=== PATIENT | male | born 1950 | race Caucasian/White ===

== ENCOUNTER 2022-03-11 06:21 | Day surgery (SDC) | payer MEDICARE, BC, SELFPAY ==
[2022-03-11 06:41] VITALS: BP 132/69; PULSE 61; RESP 16; TEMP 36.6; O2SAT 99
[2022-03-11 06:43] VITALS: BMI 25.7
[2022-03-11] MEDS: BUPIVACAINE 0.5% 30 ML INJECTION (06:50)
[2022-03-11 07:23] VITALS: BP 146/76; PULSE 68; RESP 16; O2SAT 99
--- NOTE | 2022-03-11 07:25 | SUR.PREOP ---
SAME DAY SURGERY LOCAL INJECTION SITE VERIFICATION WAS PERFORMED BY SURGEON/PA AND PATIENT PRIOR TO LOCAL ANESTHETIC BEING INJECTED TO OPERATIVE SITE.
[2022-03-11 07:27] VITALS: BP 146/77; PULSE 73; RESP 16; O2SAT 99
[2022-03-11 07:30] VITALS: BP 147/80; PULSE 70; RESP 15; O2SAT 99
--- NOTE | 2022-03-11 07:32 | PM.ORPRC ---
Procedure Note Date of procedure: 03/11/22 Procedure: PREOPERATIVE DIAGNOSIS: 1. Right index finger flexor tenosynovitis - trigger finger POSTOPERATIVE DIAGNOSIS: 1. Right index finger flexor tenosynovitis - trigger finger PROCEDURE: 1. Right index finger flexor tendon sheath open release (A1 bola) SURGEON: Willy Lyons MD. GROUNDSKEEPING YARDMAN: TIKA Curry ANESTHESIA: Local anesthetic 4ml via 50:50 mixture of 0.5% Lidocaine with epi and 0.5% marcaine plain EBL: 2mL IMPLANTS: None TOURNIQUET: None COMPLICATIONS: None evident INDICATIONS: The patient is a pleasant 71-year-old male who has experienced right index finger catching/triggering for number of months. It has progressively gotten worse. Given the failure of nonoperative management, and how this affects daily life, surgery was recommended. DESCRIPTION OF PROCEDURE: Following a thorough discussion of risks, benefits, and alternatives consent was obtained and the operative digit(s) was marked. The patient was brought to the operating room and placed supine on the operating table. Local anesthesia induction was undertaken in preop holding. No antibiotics were administered as this was planned to be a local case only. Proper time-out was performed identifying proper patient, site, and procedure. The operative extremity was prepped and draped in the appropriate sterile fashion using ChloraPrep. A incision was made on the palmar surface of the hand overlying the MCP joint region of the appropriate digit(s) respecting the palmar creases being cautious not to cross these perpendicularly. Sharp incision through the skin, and blunt dissection through subcutaneous tissue allowing protection of crossing neurologic structures. The A1 bola was visualized directly. It was incised sharply with a 15 blade. It was released completely from its distal to proximal extent under direct visualization. The tendon was inspected and found to be mildly striated consistent with some friction. Otherwise, it was intact. The tendon was removed out of the wound, and further inspected. The patient was asked to manually flex and extend the digits and showed no further catching. The catching, which was visualized initially, was no longer evident with reproduction of a manual fist and relaxation. Closure was performed with 4-O nylon in interrupted fashion. Soft dressings were applied, and the patient was transferred to the recovery room in stable condition. PLAN: 1. Encourage elevation of the operative extremity. 2. Range of motion of the fingers and hand/wrist as tolerated. 3. Ibuprofen/acetaminophen and/or Percocet as needed for pain control. 4. Follow up with PA visit in 12-16 days for wound check and suture removal.
[2022-03-11] MEDS: NEOMYCIN/BACITRACIN/POLYMYXIN B 1 APPLIC TOPICAL (07:33)
[2022-03-11 07:34] VITALS: BP 147/80; PULSE 68; RESP 16; O2SAT 99
[2022-03-11 07:44] VITALS: BP 137/85; PULSE 60; RESP 16; TEMP 36.5; O2SAT 98
== END 2022-03-11 07:54 | disposition home or self-care (01) ==
PROVIDERS: PCP Physician Assistant Medical; Visit Provider Orthopaedic Surgery Sports Medicine
PROC: (CPT 26055; principal; 2022-03-11 07:30)
DX: M65.321 Trigger finger, right index finger (principal); M65.841 Other synovitis and tenosynovitis, right hand
CPT/HCPCS: 26055; J3490

== ENCOUNTER 2022-04-02 09:15 | Outpatient (CLI) | payer MEDICARE, BC, SELFPAY ==
[2022-04-02 13:55] LABS: Chloride* 101 mmol/L (96-114)
[2022-04-02 13:56] LABS: Albumin* 4.5 g/dL (3.3-5.0); Potassium* 4.5 mmol/L (3.6-5.1); Sodium* 140 mmol/L (135-149)
[2022-04-02 13:58] LABS: Carbon Dioxide* 31 mmol/L (20-32); Cholesterol* 194 mg/dL (90-199); Creatinine* 1.2 mg/dL (0.5-1.5); Estimated Glomerular Filt Rate 65 ml/min
[2022-04-02 13:59] LABS: Alanine Aminotransferase* 31 U/L (4-50); Alkaline Phosphatase* 60 U/L (40-150); Aspartate Amino Transferase* 29 U/L (12-35); Bilirubin Total* 1.9 mg/dL (0.1-1.5); Blood Urea Nitrogen* 21 mg/dL (7-30); Calcium* 9.3 mg/dL (8.4-10.6); Glucose* 92 mg/dL (60-115); Triglycerides* 116 mg/dL (40-149)
[2022-04-02 14:00] LABS: HDL Cholesterol* 60 mg/dL (>=40); LDL Cholesterol Calculated 111 mg/dL (<100)
[2022-04-02 16:16] LABS: PSA Screen* 3.29 ng/mL (0.10-4.00)
[2022-04-02 21:23] LABS: Free T4 Free Thyroxine* 0.76 ng/dL (0.70-1.85)
== END 2022-04-02 09:16 | disposition home or self-care (01) ==
PROVIDERS: PCP Physician Assistant Medical; Visit Provider Physician Assistant Medical
DX: E03.9 Hypothyroidism, unspecified (principal); I10 Essential (primary) hypertension; Z12.5 Encounter for screening for malignant neoplasm of prostate; Z13.6 Encounter for screening for cardiovascular disorders
CPT/HCPCS: 80053; 80061; 84153; 84439; 84443

== ENCOUNTER 2022-06-04 08:13 | Outpatient (CLI) | payer MEDICARE, BC, SELFPAY | END 2022-06-04 08:14 | disposition home or self-care (01) | LOC: FRMREF 08:24 | PROVIDERS: PCP Physician Assistant Medical; Visit Provider Physician Assistant Medical | DX: E03.9 Hypothyroidism, unspecified (principal); I10 Essential (primary) hypertension | CPT/HCPCS: 84443 ==

== ENCOUNTER 2022-11-17 09:47 | Outpatient (CLI) | payer MEDICARE, BC, SELFPAY | END 2022-11-17 09:48 | disposition home or self-care (01) | PROVIDERS: PCP Physician Assistant Medical; Visit Provider Physician Assistant Medical | DX: E03.9 Hypothyroidism, unspecified (principal); I10 Essential (primary) hypertension | CPT/HCPCS: 84443 ==

== ENCOUNTER 2023-04-09 07:57 | Outpatient (CLI) | payer MEDICARE, BC, SELFPAY | END 2023-04-09 07:58 | disposition home or self-care (01) | LOC: NFLDREF 04-16 07:38 | PROVIDERS: PCP Physician Assistant Medical; Referring Provider Physician Assistant Medical; Visit Provider Physician Assistant Medical | DX: E03.9 Hypothyroidism, unspecified (principal); I10 Essential (primary) hypertension; Z12.5 Encounter for screening for malignant neoplasm of prostate; Z13.6 Encounter for screening for cardiovascular disorders | CPT/HCPCS: 80053; 80061; 84153; 84443 ==

== ENCOUNTER 2023-09-13 10:51 | Day surgery (SDC) | payer MEDICARE, BC, SELFPAY ==
[2023-09-13] VITALS (7 sets, daily range): BP systolic 148–167; BP diastolic 72–95; PULSE 53–62; RESP 16–18; TEMP 36.6–36.7; O2SAT 98–100
[2023-09-13] MEDS: BUPIVACAINE 0.5% 30 ML INJECTION (12:00)
[2023-09-13] MEDS: NEOMYCIN/BACITRACIN/POLYMYXIN B 1 APPLIC TOPICAL (12:55)
--- NOTE | 2023-09-13 13:03 | P.ORPRC_ITS ---
Procedure Note Date of procedure: 09/13/23 Procedure: PREOPERATIVE DIAGNOSIS: 1. Left ring finger flexor tenosynovitis - trigger finger POSTOPERATIVE DIAGNOSIS: 1. Left ring finger flexor tenosynovitis - trigger finger PROCEDURE: 1. Left ring finger flexor tendon sheath open release (A1 bola) SURGEON: Willy Lyons MD. SUPER[employer]OR [employer]: Daniel Goncalves PA-C ANESTHESIA: Local anesthetic 4ml via 50:50 mixture of 2 % Lidocaine with epi and 0.5% marcaine plain EBL: 2ml IMPLANTS: None TOURNIQUET: None COMPLICATIONS: None evident INDICATIONS: The patient is a pleasant 73-year-old male who has experienced left ring finger catching/triggering for number of months. It has progressively gotten worse. Given the failure of nonoperative management, and how this affects daily life, surgery was recommended. DESCRIPTION OF PROCEDURE: Following a thorough discussion of risks, benefits, and alternatives consent was obtained and the operative digit(s) was marked. The patient was brought to the operating room and placed supine on the operating table. Local anesthesia induction was undertaken in preop holding. No antibiotics were administered as this was planned to be a local case only. Proper time-out was performed identifying proper patient, site, and procedure. The operative extremity was prepped and draped in the appropriate sterile fashion using ChloraPrep. An incision was made on the palmar surface of the hand overlying the MCP joint region of the appropriate digit(s) respecting the palmar creases being cautious not to cross these perpendicularly. Sharp incision through the skin, and blunt dissection through subcutaneous tissue allowing protection of crossing neurologic structures. The A1 bola was visualized directly. It was incised sharply with a 15 blade. It was released completely from its distal to proximal extent under direct visualization. The tendon was inspected and found to be mildly striated consistent with some friction. Otherwise, it was intact. The tendon was removed out of the wound, and further inspected. The patient was asked to manually flex and extend the digits and showed no further catching. The catching which was visualized after tourniquet inflation, was no longer evident with reproduction of a manual fist and relaxation. Closure was performed with 4-O nylon in interrupted fashion. Soft dressings were applied, and the patient was transferred to the recovery room in stable condition. PLAN: 1. Encourage elevation of the operative extremity. 2. Range of motion and icing of the fingers and hand/wrist as tolerated/needed. 3. Ibuprofen/acetaminophen and/or oxycodone as needed for pain control. 4. Follow up with PA visit in 12-16 days for wound check and suture removal.
== END 2023-09-13 13:15 | disposition home or self-care (01) ==
PROVIDERS: PCP Physician Assistant Medical; Visit Provider Orthopaedic Surgery Sports Medicine
PROC: (CPT 26055; principal; 2023-09-13 12:00)
DX: M65.342 Trigger finger, left ring finger (principal); M65.842 Other synovitis and tenosynovitis, left hand
CPT/HCPCS: 26055; J0665

== ENCOUNTER 2023-12-13 18:32 | Emergency (ER) | payer MEDICARE, BC, SELFPAY ==
[2023-12-13 18:40] VITALS: BP 145/77; PULSE 78; RESP 16; TEMP 36.9; O2SAT 98; BMI 26.4
--- NOTE | 2023-12-13 18:50 | ED_ITS ---
HPI - General Adult General Chief complaint: Abdominal Pain Stated complaint: abdominal pain Time Seen by Provider: 12/13/23 18:36 History of Present Illness HPI narrative: Double checking for labs and CT scan to abdomen- sent over from clinic Pain started in LLQ yesterday afternoon 73-year-old man presenting to the emergency department with concern of abdominal pain. Began to be uncomfortable in the left lower abdomen about 28 hours ago. Was seen in clinic this afternoon and directed here with concern of abscess. Reading clinic notes it appears that he was guarding to exam. Has not had a fever. Is not nauseated. Over the last month or so has begun treatment with pentoxifylline which seems to be contributing to poor appetite. He denies constipation. No diarrhea. No dysuria. No history of UTI. Does have a history of diverticulitis I believe was in 2007. Uncomplicated. Treated with oral antibiotics. Had subsequent colonoscopy in 2018 which they report was absent any other disease. Pain is uncomfortable with movement but in particular palpation as he describes. Was mowing the lawn without notable difficulty yesterday. Sounds to be rather active. Related Data Home Medications ?Medication ?Instructions ?Recorded ?Confirmed B-complex with vitamin C 1 cap PO QDAY 02/20/22 12/13/23 arginine (L-arginine) 500 mg mg PO 02/20/22 12/13/23 capsule aspirin 81 mg chewable tablet 1 tab PO DAILY 02/20/22 12/13/23 omega 3-zzd-rjl-fish oil 300 1 cap PO QDAY 02/20/22 12/13/23 mg-1,000 mg capsule (Fish Oil) multivitamin (Multiple Vitamins 1 tab PO QDAY 09/09/23 12/13/23 tablet) pentoxifylline 400 mg 400 mg PO BID peyronne's 10/07/23 12/13/23 tablet,extended release Previous Rx's ?Medication ?Instructions ?Recorded chorionic gonadotropin, human 0.13 unit IM 2XW #1 ea 01/28/23 10,000 unit IM powder for solution levothyroxine 50 mcg tablet 50 mcg PO QDAY #90 tabs 04/09/23 needle (disp) 22 G 22 gauge x 1 #13 ea 06/04/23 syringe with needle 3 mL 21 gauge #13 ea 06/04/23 x 1 (BD Luer-Tatiana Syringe) lisinopril 30 mg tablet 30 mg PO DAILY #90 tabs 09/02/23 nebivolol 5 mg tablet 5 mg PO DAILY #90 tabs 09/02/23 insulin syringe-needle U-100 0.3 #10 ea 09/30/23 mL 31 gauge x 5/16 (BD Insulin Syringe Ultra-Fine) safety needles 25 gauge x 1 (BD #100 ea 10/11/23 Eclipse) testosterone cypionate 200 mg/mL 80 mg (0.4 mL) IM .One Day Per 10/12/23 intramuscular oil Week #10 mL clobetasol 0.05 % shampoo 1 applic topical QDAY PRN rash 1 12/16/23 week #118 mL Allergies Allergy/AdvReac Type Severity Reaction Status Date / Time No Known Drug Allergies Allergy Verified 12/13/23 18:45 Review of Systems Status of ROS: Reports: 6 or more systems reviewed and unremarkable except as noted in History and below PFSH PFS Medical History Seborrheic dermatitis ?L21.9 - Seborrheic dermatitis, unspecified (ICD-10) Trigger finger, right index finger ?M65.321 - Trigger finger, right index finger (ICD-10) History of renal calculi ?Z87.442 - Personal history of urinary calculi (ICD-10) Surgical History Status post trigger finger release ?Z98.890 - Other specified postprocedural states (ICD-10) History of sinus surgery ?Z98.890 - Other specified postprocedural states (ICD-10) History of cataract removal with insertion of prosthetic lens ?Z98.49 - Cataract extraction status, unspecified eye (ICD-10) ?Z96.1 - Presence of intraocular lens (ICD-10) Family History Father Diabetes Mother Myelodysplasia (myelodysplastic syndrome) Social History Narrative: Health care directive on file completed 02/03/21 What is your current living situation?: I presently have a place to live Problems where you live: no known problems In the past 12 months, utilities in danger of being shut off: no In past 12 months, lack of transportation kept you from medical appts, meetings, work, or getting things needed for daily living: no In the past 12 mos, have been you worried that your food would run out before you had money to buy more?: never true In the past 12 mos, the food you bought just didn't last and you didn't have money to buy more?: never true Smoking Status: Never smoker How often do you have a drink containing alcohol: 2-4 times a month AUDIT-C Alcohol total score: 2 Non-prescribed substance use: denies use How often does anyone, including family, friends and others, physically hurt you : never How often does anyone, including family, friends and others, insult or talk down to you: never How often does anyone, including family, friends and others, threaten you with harm: never How often does anyone, including family, friends and others, scream or curse at you: never Little interest or pleasure in doing things: not at all Feeling down, depressed, or hopeless: not at all Exam Narrative: Exam Narrative: Pleasant. NAD. Transitions without difficulty. Face is wallace. Skin is warm and dry otherwise. Well-perfused peripherally. Abdomen with present, normal bowel sounds. Little protuberant. Nontender until the left lower abdomen, left lower quadrant where he is guarding. Heart in regular rate and rhythm without murmur or gallop. Lungs appear to be clear. Const: Vital Signs, click to edit/add: Vital Signs - 24 hr 12/13/23 18:40 Temperature 98.4 F Pulse Rate [Pulse Oximeter] 78 Respiratory Rate 16 Blood Pressure [Ri ght Upper Arm] 145/77 H Pulse Oximetry 98 Oxygen Delivery Me thod Room Air Documenting provider has reviewed patient's vital signs: yes Course Vital Signs Vital signs: Initial Vital Signs Temperature 98.4 F 12/13/23 18:40 Temperature Source Temporal Artery Scan 12/13/23 18:40 Pulse Rate 78 12/13/23 18:40 Respiratory Rate 16 12/13/23 18:40 Blood Pressure 145/77 H 12/13/23 18:40 Blood Pressure Mean 99 12/13/23 18:40 Blood Pressure Position Sitting 12/13/23 18:40 Pulse Oximetry 98 12/13/23 18:40 Oxygen Delivery Method Room Air 12/13/23 18:40 Vital Signs Temperature 98.4 F 12/13/23 18:40 Pulse Rate 78 12/13/23 18:40 Respiratory Rate 16 12/13/23 18:40 Blood Pressure 145/77 H 12/13/23 18:40 Pulse Oximetry 98 12/13/23 18:40 Oxygen Delivery Method Room Air 12/13/23 18:40 Temperature 98.4 F 12/13/23 18:40 Pulse Rate 78 12/13/23 18:40 Respiratory Rate 18 12/13/23 21:00 Blood Pressure 145/77 H 12/13/23 18:40 Pulse Oximetry 98 12/13/23 18:40 Oxygen Delivery Method Room Air 12/13/23 18:40 Medications Administered Medications: Discontinued Medications Generic Name Dose Route Start Last Admin Trade Name Josephq PRN Reason Stop Dose Admin Hyoscyamine 0.25 mg 12/13/23 20:04 12/13/23 20:20 Hyoscyamine Sulfate 0.125 Mg Tab SUBLINGUAL 12/13/23 20:05 0.25 mg ONCE ONE Administration Ketorolac Tromethamine 10 mg 12/13/23 20:04 12/13/23 20:20 Ketorolac 10 Mg Tablet PO 12/13/23 20:05 10 mg ONCE ONE Administration Medical Decision Making MDM Narrative Medical decision making narrative: Differential would include ureteral stone and colic, constipation or diarrhea though he denies these. I think considering history and location diverticulitis is most likely diagnosis. I would doubt formation of abscess at this point as brief duration of symptoms. He has guarding but otherwise abdomen is soft. No fever. I do not think it is unreasonable to treat with oral antibiotics and discharge but will check white count for baseline. Flat and upright abdominal x-ray looking for any evidence of perforation I think this is less likely as well. Pending unexpected findings in this brief workup could secondarily place IV and more extensive imaging. Labs notable for mildly elevated CRP. Urine unremarkable. Abdominal x-ray reviewed by me looks to have normal bowel gas pattern. There is a density, calcific in the left mid abdomen. This does not seem to correlate precisely with his area of pain but I suppose this could be a stone radiating pain through the ureter Given ODT Zofran and hyoscyamine dissolvable. Discussed further evaluation. CT abdomen pelvis without IV was requested. Reviewed by me does appear to have inflammatory changes which I think would be consistent with diverticulitis in the left lower abdomen and consistent with area of pain. Radiology over-read of CT abdomen pelvis as below Left lower quadrant abdominal pain COMPARISON: Same-day KUB TECHNIQUE: CT of the abdomen and pelvis without intravenous contrast. FINDINGS: Please note that absence of intravenous contrast limits evaluation of soft tissue and vascular structures. Lung bases: No pleural effusion. Liver: Smooth hepatic contour. Gallbladder and biliary tree: Unremarkable noncontrast CT appearance. Spleen: No splenomegaly. Pancreas: Unremarkable noncontrast CT appearance. Adrenal glands: Normal. Kidneys and ureters: No hydroureteronephrosis. 1 centimeter nonobstructing left lower renal pole calculus. Bladder: Unremarkable noncontrast CT appearance. Visualized reproductive organs: Unremarkable noncontrast CT appearance. Gastrointestinal tract: There is severe colonic diverticulosis. There is prominent fat stranding associated with the sigmoid colon and prominent wall thickening. Peritoneal cavity: No free fluid or free air. Lymph nodes: No enlarged abdominal or pelvic lymph nodes by CT size criteria. Vessels: No abdominal aortic aneurysm. Mild aortic calcification. Abdominal and pelvic wall: Normal. Bones: There are osseous degenerative changes. IMPRESSION: 1. Acute uncomplicated sigmoid diverticulitis 2. Nonobstructing 1 centimeter left renal calculus. Overall improved/well during time in the emergency department. Did consider further IV treatment though with normal labs and controlled symptoms preference is for outpatient management. See patient discharge plan for further discussion Medical Records Medical records reviewed: Yes I reviewed the patient's medical records Lab Data Lab results reviewed: Yes I reviewed the patient's lab results Labs: Lab Results 12/13/23 12/13/23 Range/Units 19:20 20:06 WBC 8.53 (4.50-11.00) K/uL RBC 4.41 (4.30-5.90) m/uL Hgb 14.1 (13.5-17.5) gm/dL Hct 40.6 (37.0-53.0) % MCV 92 (80-100) fL MCH 32 (26-34) pg MCHC 35 (32-36) gm/dL RDW Coeff of [place] 12.1 (11.5-15.5) % Plt Count 150 (140-440) K/uL Neut % (Auto) 80.2 H (42.0-72.0) % Lymph % (Auto) 9.1 L (20-44) % [place] % (Auto) 8.3 (0.0-11.0) % Eos % (Auto) 2.0 (0.0-7.0) % Baso % (Auto) 0.2 (0.0-3.0) % Neut # (Auto) 6.80 (1.7-7.0) K/uL Lymph # (Auto) 0.80 L (0.90-2.90) K/uL [place] # (Auto) 0.70 (0.00-0.90) K/UL Eos # (Auto) 0.17 (0.00-0.50) K/uL Baso # (Auto) 0.02 (0.00-0.30) K/uL Abs Immat Gran (auto) 0.02 (0.00-0.30) K/uL Imm/Tot Granulo (auto) 0.2 % C-Reactive Protein 1.7 H (0.5-1.0) mg/dL Urine Color Yellow (Yellow) Urine Appearance Clear (Clear) Urine pH 6.0 (5.0-8.5) Ur Specific [place] 1.025 (1.000-1.030) Urine Protein Negative (Negative) Urine Glucose (UA) Negative (Negative) Urine Ketones Negative (Negative) Urine Blood Negative (Negative) Urine Nitrite Negative (Negative) Urine Bilirubin Negative (Negative) Urine Urobilinogen 0.2 (0.2-1.0) Ur Leukocyte Esterase Negative (Negative) Urine RBC 0-2 (0-2) Urine WBC 0-2 (0-5) Ur Squamous Epith Cells Few (None-Few) Urine Bacteria None (None) Discharge Plan Discharge Clinical Impression: Diverticulitis, Nephrolithiasis Patient Disposition: Home, Self-Care Condition: Stable Instructions: Diverticulitis (ED), Kidney Stones (ED) Additional Instructions: Yes. In general do stay well-hydrated. Be seen for marked increase in persistent pain, associated fever, repeated vomiting. Can take ibuprofen or acetaminophen for pain at this point. They can be c ombined. Temporarily up to 800 mg of ibuprofen or up to 1000 mg of acetaminophen per dose. Ciprofloxacin and metronidazole from [facility]. Prescriptions: No Action aspirin 81 mg tablet,chewable 1 tab PO DAILY omega 2-bul-jdk-fish oil [Fish Oil] 300-1,000 mg capsule 1 cap PO QDAY B-complex with vitamin C Capsule 1 cap PO QDAY arginine (L-arginine) 500 mg capsule PO multivitamin [Multiple Vitamins] Tablet 1 tab PO QDAY chorionic gonadotropin, human 10,000 unit recon soln 0.13 unit IM 2XW Qty: 1 3RF Rx Instructions: Mix chorionic gonadotropin with 10ml of diluent and inject 0.13 ml 2 x per week levothyroxine 50 mcg tablet 50 mcg PO QDAY Qty: 90 3RF (DME) needle (disp) 22 G 22 gauge x 1 needle See Rx Instructions .ROUTE .COMPLEX Qty: 13 3RF Dose Instruction: USE WEEKLY WITH TESTOSTERONE Rx Instructions: USE WEEKLY WITH TESTOSTERONE (DME) BD Luer-Tatiana Syringe 3 mL 21 gauge x 1 syringe See Rx Instructions .ROUTE .COMPLEX Qty: 13 3RF Dose Instruction: USE WEEKLY WITH TESTOSTERONE Rx Instructions: USE WEEKLY WITH TESTOSTERONE lisinopril 30 mg tablet 30 mg PO DAILY Qty: 90 1RF nebivolol 5 mg tablet 5 mg PO DAILY Qty: 90 1RF (DME) insulin syringe-needle U-100 [BD Insulin Syringe Ultra-Fine] 0.3 mL 31 gauge x 5/16 syringe See Rx Instructions .Route Qty: 10 1RF Rx Instructions: Use with chorionic gonadotropin injection pentoxifylline 400 mg tablet extended release 400 mg PO BID Rx Instructions: must administer with a meal/food (DME) BD Eclipse 25 gauge x 1 needle See Rx Instructions .Route Qty: 100 3RF Rx Instructions: Use Weekly with testosterone testosterone cypionate 200 mg/mL oil 80 mg IM .One Day Per Week Qty: 10 3RF clobetasol 0.05 % shampoo 1 applic topical QDAY PRN (Reason: rash) 7 Days Qty: 118 1RF Follow Up/Referrals: Wanda Lua PA-C [Primary Care Provider] - Stand Alone Forms: [facility] Info Instructions
--- NOTE | 2023-12-13 19:07 | CRLHL7_ITS ---
For Patients: As a result of the Century Cures Act, medical imaging exams and procedure reports are released immediately into your electronic medical record. You may view this report before your referring provider. If you have questions, please contact your health care provider. INDICATION: Abdominal pain, left lower quadrant pain TECHNIQUE: Abdomen Pelvis radiograph 2 views COMPARISON: None FINDINGS: Bowel: The bowel gas pattern is normal without evidence of bowel obstruction. Soft tissue: No evidence of pneumoperitoneum present. There is a 10 mm calcific density in the left flank which may represent a left renal stone. Bone: Unremarkable for age. IMPRESSION: 1. There is a 10 mm calcific density in the left flank which may represent a left renal stone. Assessment with CT may be helpful. Dictated by Dru Valdes MD @ 12/13/2023 7:45:38 PM Dictated by: Dru Valdes MD @ 12/13/2023 19:45:41 (Electronically Signed)
[2023-12-13 19:26] LABS: Basophils Absolute Auto 0.02 K/uL (0.00-0.30); Basophils Percent Auto 0.2 % (0.0-3.0); Eosinophils Absolute Auto 0.17 K/uL (0.00-0.50); Hematocrit 40.6 % (37.0-53.0); Hemoglobin* 14.1 gm/dL (13.5-17.5); Immature Granulocytes Abs Auto 0.02 K/uL (0.00-0.30); Immature Granulocytes Pct Auto 0.2 %; Lymphocytes Percent Auto 9.1 % (20-44); Mean Corpuscular HGB Conc 35 gm/dL (32-36); Mean Corpuscular Hemoglobin 32 pg (26-34); Mean Corpuscular Volume 92 fL (80-100); Monocytes Percent Auto 8.3 % (0.0-11.0); Neutrophils Percent Auto 80.2 % (42.0-72.0); Platelet Count* 150 K/uL (140-440); RDW Coefficient of Variation % 12.1 % (11.5-15.5); Red Blood Count 4.41 m/uL (4.30-5.90); White Blood Count* 8.53 K/uL (4.50-11.00)
[2023-12-13 19:28] LABS: Slide Review Reflex No
[2023-12-13 19:49] LABS: C Reactive Protein* 1.7 mg/dL (0.5-1.0)
--- NOTE | 2023-12-13 20:00 | CRLHL7_ITS ---
For Patients: As a result of the Century Cures Act, medical imaging exams and procedure reports are released immediately into your electronic medical record. You may view this report before your referring provider. If you have questions, please contact your health care provider. INDICATION: Left lower quadrant abdominal pain COMPARISON: Same-day KUB TECHNIQUE: CT of the abdomen and pelvis without intravenous contrast. FINDINGS: Please note that absence of intravenous contrast limits evaluation of soft tissue and vascular structures. Lung bases: No pleural effusion. Liver: Smooth hepatic contour. Gallbladder and biliary tree: Unremarkable noncontrast CT appearance. Spleen: No splenomegaly. Pancreas: Unremarkable noncontrast CT appearance. Adrenal glands: Normal. Kidneys and ureters: No hydroureteronephrosis. 1 centimeter nonobstructing left lower renal pole calculus. Bladder: Unremarkable noncontrast CT appearance. Visualized reproductive organs: Unremarkable noncontrast CT appearance. Gastrointestinal tract: There is severe colonic diverticulosis. There is prominent fat stranding associated with the sigmoid colon and prominent wall thickening. Peritoneal cavity: No free fluid or free air. Lymph nodes: No enlarged abdominal or pelvic lymph nodes by CT size criteria. Vessels: No abdominal aortic aneurysm. Mild aortic calcification. Abdominal and pelvic wall: Normal. Bones: There are osseous degenerative changes. IMPRESSION: 1. Acute uncomplicated sigmoid diverticulitis 2. Nonobstructing 1 centimeter left renal calculus. Please note that all CT scans at this facility use dose modulation, iterative reconstruction, and/or weight-based dosing when appropriate to reduce radiation dose to as low as reasonably achievable. Dictated by Keaton Kan MD @ 12/13/2023 8:50:02 PM (Electronically Signed)
[2023-12-13 20:18] LABS: Appearance Urine Clear (Clear); Bilirubin Urine Negative (Negative); Blood Urine Negative (Negative); Color Urine Yellow (Yellow); Glucose Urine Negative (Negative); Ketones Urine Negative (Negative); Leukocyte Esterase Urine Negative (Negative); Nitrite Urine Negative (Negative); Protein Urine Negative (Negative); Specific Gravity Urine 1.025 (1.000-1.030); Urobilinogen Urine 0.2 (0.2-1.0)
[2023-12-13 20:20] LABS: RBC Urine 0-2 (0-2); Squamous Epithelial Cell Urine Few (None-Few); WBC Urine 0-2 (0-5)
[2023-12-13] MEDS: HYOSCYAMINE SULFATE 0.125 MG TAB 0.25 MG SUBLINGUAL (20:20)
[2023-12-13] MEDS: KETOROLAC 10 MG TABLET PO (20:20)
[2023-12-13 21:00] VITALS: RESP 18
--- NOTE | 2023-12-13 21:18 | ED.NURSE ---
Patient discharged to home.
== END 2023-12-13 21:18 | disposition home or self-care (01) ==
PROVIDERS: Emergency Provider Family Medicine; PCP Physician Assistant Medical
DX: K57.32 Diverticulitis of large intestine without perforation or abscess without bleeding (principal); N20.0 Calculus of kidney
CPT/HCPCS: 36415; 74019; 74176; 81001; 85025; 86140; 99284; A9270

== ENCOUNTER 2024-03-30 08:37 | Outpatient (CLI) | payer MEDICARE, BC, SELFPAY ==
--- OUTSIDE RECORDS SUMMARY | 2024-04-03 20:22 | XMS_ITS | Data Portability ---
Author Organization [place] [facility] [place] [facility], [facility] Address [address] [facility] [address] [place] [address] Care Team Providers Care Landing Support Specialist Name Role Phone WANDA LUA Primary Care Provider [phone] Assessment Encounter Date Assessment Date Assessment LastModified by Organization Details LastModified Time 10/07/2023 10/07/2023 73 yoM with Peyronie's disease and penile pain Not available 10/07/2023 09:40:11 01/13/2024 01/13/2024 73 yoM with Peyronie's disease and penile pain [email or web address] Not available 01/10/2024 12:50:36 Plan of Treatment Reminders Order Date Submit Date Provider Last Modified By Organization Details Last Modified Time Details Appointments ESTABLISH ED 10 2023 10:30A M Chico Angel MD Not available Not available Not available Lab None recorded. Referral None recorded. Procedures None recorded. Surgeries None recorded. Imaging None recorded. Medication Orders pentoxify lline ER 400 mg tablet,ex tended release 2023 024 [facility] [address], [address] [place], [address], 10/07/2023 11:53:39 Patient TargetsNo targets recorded. Patient Instructions Encounter Date Encounter Id Patient Instructions Last Modified By Organization Details Last Modified Time 10/07/2023 [id number] He would like to proceed with pentoxifylline with manual traction therapy. What I would like you to do is 2-3 times per day spend a total of 2 minutes performing stretching exercises. First you will stretch your penis straight until is is uncomfortably tight. Hold this for 1 minute. The use your other hand to create a fulcrum and bend the penis the opposite way from the direction that it bends with erections. Again hold this for 1 minute. You should perform these stretching exercises in the flaccid state. Not available 10/07/2023 13:17:29 Reason for Referral None Reported. Procedures Surgical History Date Name Laterality Status Provider Name and Address Organization Details Recorded Time 01/13/20 24 COMPLEX VISIT completed Chico Angel MD [address] [facility] [address], [place], [address], [facility] 01/13/2024 09:32:20 05/24/19 18 Colonoscopy completed Kiarra Matos [facility] 10/07/2023 11:39:31 procedure on nose completed Kiarra Matos [facility] 10/07/2023 11:39:12 procedure on finger completed Kiarra Matos [facility] 10/07/2023 11:39:18 Imaging Results None recorded. Procedure Notes None recorded. Medical Equipment None Reported. Allergies No known drug allergies Medications Name Sig Start Date Stop Date Status Note LastModified by Organization Details LastModified Time ketoconazol e 2 % shampoo 01/12 completed Not Available Not Available Not Available pentoxifyll ine ER 400 mg tablet,exte nded release Take 1 tablet twice a day by oral route. 2023 active Not Available Not Available Not Avai lable levothyroxi ne 50 mcg tablet active Not Available Not Available Not Available chorionic gonadotropi n, human 10,000 unit IM powder for solution active Not Available Not Available Not Available lisinopril 30 mg tablet active Not Available Not Available Not Available testosteron e cypionate 200 mg/mL intramuscul ar oil active Not Available Not Available Not Available oxycodone 5 mg tablet TAKE 1 TABLET BY MOUTH EVERY 4 TO 8 HOURS NEEDED FOR PAIN 10/06 completed Not Available Not Available Not Available clobetasol 0.05 % shampoo USE 1 APPLICATI ON TOPICALLY EVERY DAY NEEDED FOR RASH FOR 1 WEEK. active Not Available Not Available No t Available nebivolol 5 mg tablet active Not Available Not Available No t Available Droplet Insulin Syringe 0.3 mL 31 gauge x 10/06 active Not Available Not Available Not Available Vitals Date Recorded Body height Body mass index (BMI) Body weight Provider Name and Address Organization Details Last Updated DateTime 10/07/2023 182.88 cm 25.5 kg/m2 35036.37 g Kiarra Matos [facility] 10/07/2023 11:37:47 Date Recorded Body height Body mass index (BMI) Body weight Provider Name and Address Organization Details Last Updated DateTime 01/13/2024 182.88 cm 25.5 kg/m2 29609.37 g Tenisha Denis [facility] 01/13/2024 11:27:50 Social History Question Answer Notes LastModified by Organizat ion Details LastModified Time Tobacco Smoking Status Never Smoker Kiarra yee, [facility] 10/07/2023 11:39:00 What Is Your Level Of Alcohol Consumption? Occasional Information not available 10/07/2023 What Is Your Level Of Caffeine Consumption? Occasional Information not available 10/07/2023 What Was The Date Of Your Most Recent Tobacco Screening? 01/13/2024 Information not available 01/13/2024 Have You Ever Been Counseled For Unhealthy Alcohol Use? No Information not available 10/07/2023 Do You Use Any Illicit Or Recreational Drugs? No Information not available 10/07/2023 Has Tobacco Cessation Counseling Been Provided? No Information not available 10/07/2023 Do You Or Have You Ever Used Any Other Forms Of Tobacco Or Nicotine? No Information not available 10/07/2023 How Many Days In The Past Year Have You Consumed 5 Or More Drinks? 0 Information no t available 01/13/2024 Sex: Unknown Functional Status None recorded. Mental Status None recorded. Family History Relationship Description Onset Age of this Age Resolved Age Notes LastModified by Organization Details LastModified Time Father No current problems or disability [email or web address] Not available 11:38:44 Mother No current problems or disability [email or web address] Not available 11:38:44 Medical History Condition Response Sexually Transmitted Infection N Diabetes N Other Y Bleeding Disorder N High Blood Pressure Y Kidney Stones Y High Cholesterol N GERD/Acid Reflux N Heart Disease N Cancer N Depression N Lung Disease N Immunizations Vaccine Type Date Status Provider Name and Address Organization Details Recorded Time zoster recombinant 04/27/2023 completed Kiarra Stromquist null, [facility] 10/07/2023 11:37:58 Influenza, adjuvanted, quadrivalent, PF 03/08/2023 completed Kiarra Stromquist null, [facility] 10/07/2023 11:37:58 COVID-19, mRNA, LNP-S, PF, 100 mcg/0.5mL dose or 50 mcg/0.25mL dose 11/04/2021 completed Kiarra Stromquist null, [facility] 10/07/2023 11:37:58 COVID-19, mRNA, LNP-S, PF, 100 mcg/0.5mL dose or 50 mcg/0.25mL dose 03/28/2021 completed Kiarra Stromquist null, [facility] 10/07/2023 11:37:58 COVID-19, mRNA, LNP-S, bivalent, PF, 50 mcg/0.5 mL or 25mcg/0.25 mL dose 03/25/2022 completed Kiarra Stromquist null, [facility] 10/07/2023 11:37:58 COVID-19, mRNA, LNP-S, PF, 50 mcg/0.5 mL 04/12/2023 completed Kiarra Stromquist null, [facility] 10/07/2023 11:37:58 Tdap 11/04/2021 completed Kiarra Stromquist null, [facility] 10/07/2023 11:37:58 Influenza, high-dose, trivalent, PF 02/17/2022 completed Kiarra Stromquist null, [facility] 10/07/2023 11:37:58 Influenza, high-dose, trivalent, PF 02/19/2021 completed Kiarra Stromquist null, [facility] 10/07/2023 11:37:58 Influenza, high-dose, trivalent, PF 02/22/2018 completed Kiarra Stromquist null, [facility] 10/07/2023 11:37:58 Influenza, high-dose, trivalent, PF 02/23/2019 completed Kiarra Stromquist null, [facility] 10/07/2023 11:37:58 Past Encounters Encounter ID Performer Location Encounter Start Date Encounter Closed Date Diagnosis/Indication Diagnosis SNOMED-CT Code Diagnosis ICD10 Code [id number] MD DOREEN Mas_Rajwinder [address] [place] [id number] 10/07/2023 11:12:37 10/08/2023 12:49:19 Induration penis plastica 1684654 N48.6 Pain in penis 782787434 N48.89 [id number] MD DOREEN Mas_Rajwinder [address] [place] [id number] 01/13/2024 11:24:27 01/14/2024 13:35:40 Induration penis plastica 0080906 N48.6 Pain in penis 166121292 N48.89 Health Concerns Section Related Observation LastModified by Organization Detai ls LastModified Time None Recorded Concern Status LastModified by Organization Details LastModified Time None Recorded Advance Directives Directive None Recorded Payers Encounter Date Sequence Insurance Name Policy Number Policy Gaines Covered Member ID Gaines Member ID Guarantor Name 10/07/2023 2 [place] [id number] Armando Lopez [id number] Armando Lopez 10/07/2023 1 [place] [employer] Armando Lopez [id number] Armando Lopez 01/13/2024 2 [place] [id number] Armando Lopez [id number] Armando Lopez 01/13/2024 1 [place] [employer] Armando Lopez [id number] Armando Lopez Notes Date Note Type Note Provider Name and Address Organization Details Recorded Time 10/07/2023 text/html HPI Notes: Mr. Lopez is a very pleasant 73 year old male who is referred to me by his PCP, Wanda Lua PA-C, regarding suspected Peyronie's disease. First noted curvature: 6 months ago Current curvature: 30 degrees by goniometer Direction of curvature: ventral Indentation/Hourglas s: no Presence of Pain: yes Quality of Erections: 4 out of 4 (Erectile Hardness Scale) Able to penetrate: yes but difficult Current treatment: none Seen today with his who provides some history. Chico Angel MD [address] [facility] [address], [place], [address], [facility] 10/07/2023 13:17:39 01/13/2024 text/html HPI Notes: Mr. Lopez is a very pleasant 73 year old male who is referred to me by his PCP, aWnda Lua PA-C, regarding suspected Peyronie's disease. First noted curvature: 6 months ago Current curvature: 30 degrees by goniometer Direction of curvature: ventral Indentation/Hourglas s: no Presence of Pain: yes Quality of Erections: 4 out of 4 (Erectile Hardness Scale) Able to penetrate: yes but difficult Current treatment: none Seen today with his who provides some history. 01/13/2024: Here for follow-up Peyronie's disease, penile pain. Has been maintained on Pentoxifylline and manual traction. Today he reports mild advancement of his curvature (now 40 degrees) and shortening (more bothersome) Pain has resolved. Seen again today with his who provides some history. Chico Angel MD [address] [facility] [address], [place], [address], [facility] 01/13/2024 13:53:55
--- OUTSIDE RECORDS SUMMARY | 2024-04-03 20:22 | XMS_ITS | Continuity of Care Document ---
Author Organization [facility], [facility] Address [address] [place] [address] Care Team Providers Care Winch Runner Name Role Phone WANDA LUA Primary Care Provider Assessment Encounter Date Assessment Date Assessment LastModified by Organization Details LastModified Time 01/13/2024 01/13/2024 73 yoM with Peyronie's disease and penile pain [email or web address] Not available 01/10/2024 12:50:36 Plan of Treatment Reminders Order Date Submit Date Provider Last Modified By Organization Details Last Modified Time Details Appointments ESTABLISH ED 10 2023 10:30A M Chico Angel MD Not available Not available Not available Lab None recorded. Referral None recorded. Procedures None recorded. Surgeries None recorded. Imaging None recorded. Medication Orders None recorded. Patient TargetsNo targets recorded. Patient InstructionsNo instructions recorded. Reason for Referral None Reported. Procedures Surgical History Date Name Laterality Status Provider Name and Address Organization Details Recorded Time 01/13/20 24 COMPLEX VISIT completed Chico Angel MD [address] [place] [address],[address], [place], [address], [facility] 01/13/2024 09:32:20 05/24/19 18 Colonoscopy completed Kiarra Matos [facility] 10/07/2023 11:39:31 procedure on nose completed Kiarra Matos [facility] 10/07/2023 11:39:12 procedure on finger completed Kiarra Matos [facility] 10/07/2023 11:39:18 Imaging Results None recorded. [...] Updated DateTime 01/13/2024 182.88 cm 25.5 kg/m2 00487.37 g Tenisha Barrios [facility] 01/13/2024 11:27:50 Social History Question Answer Notes LastModified by Organizat ion Details LastModified Time Tobacco Smoking Status Never Smoker Kiarra Matos [facility] 10/07/2023 11:39:00 What Is Your Level Of [...] Recorded Time zoster recombinant 04/27/2023 completed Kiarra Anandquist null, [facility] 10/07/2023 11:37:58 Influenza, adjuvanted, quadrivalent, PF 03/08/2023 [facility] 11:37:58 COVID-19, mRNA, LNP-S, PF, 100 mcg/0.5mL dose or 50 mcg/0.25mL dose 11/04/2021 [facility] 10/07/2023 11:37:58 COVID-19, mRNA, LNP-S, PF, 100 mcg/0.5mL dose or 50 mcg/0.25mL dose 03/28/2021 [facility] 10/07/2023 11:37:58 COVID-19, mRNA, LNP-S, bivalent, PF, 50 mcg/0.5 mL or 25mcg/0.25 mL dose 03/25/2022 [facility] 10/07/2023 11:37:58 COVID-19, mRNA, LNP-S, PF, 50 mcg/0.5 mL 04/12/2023 [facility]/07/2023 11:37:58 Tdap 11/04/2021 [facility] 10/07/2023 11:37:58 Influenza, high-dose, trivalent, PF 02/17/2022 completed Kiarra Matos null, [facility] 10/07/2023 11:37:58 Influenza, high-dose, trivalent, PF 02/19/2021 completed Kiarra Matos null, [facility] 10/07/2023 11:37:58 Influenza, high-dose, trivalent, PF 02/22/2018 completed Kiarra Matos null, [facility] 10/07/2023 11:37:58 Influenza, high-dose, trivalent, PF 02/23/2019 completed Kiarra Matos null, [facility] 10/07/2023 11:37:58 Past Encounters Encounter ID Performer Location Encounter Start Date Encounter Closed Date Diagnosis/Indication Diagnosis SNOMED-CT Code Diagnosis ICD10 Code [id number] Chico Angel MD [facility] [address] [place] [address] 01/13/2024 11:24:27 01/14/2024 13:35:40 Induration penis plastica 0139211 N48.6 Pain in penis 192333383 N48.89 Health Concerns Section Related Observation LastModified by Organization Detai ls LastModified Time None Recorded Concern Status LastModified by Organization Details LastModified Time None Recorded Payers Encounter Date Sequence Insurance Name Policy Number Policy Gaines Covered Member ID Gaines Member ID Guarantor Name 01/13/2024 2 [place] [id number] Armando Lopez [id number] Armando Lopez 01/13/2024 1 [place] [employer] Armando Lopez [id number] 6 Armando Lopez Notes Date Note Type Note Provider Name and Address Organization Details Recorded Time 01/13/2024 text/html HPI Notes: Mr. Lopez is [...] who provides some history. Chico Angel MD [address] [place] [address],[address], [place], [address], [facility] 01/13/2024 13:53:55
== END 2024-03-30 08:38 | disposition home or self-care (01) ==
LOC: NFLDREF 04-03 20:21
PROVIDERS: PCP Physician Assistant Medical; Referring Provider Physician Assistant Medical; Visit Provider Physician Assistant Medical
DX: E03.9 Hypothyroidism, unspecified (principal); I10 Essential (primary) hypertension; E29.1 Testicular hypofunction; Z12.5 Encounter for screening for malignant neoplasm of prostate; Z13.220 Encounter for screening for lipoid disorders
CPT/HCPCS: 80053; 80061; 84403; 84443; G0103

== ENCOUNTER 2025-04-05 08:56 | Outpatient (CLI) | payer MEDICARE, BC, SELFPAY | END 2025-04-05 08:57 | disposition home or self-care (01) | LOC: NFLDREF 04-10 21:30 | PROVIDERS: PCP Physician Assistant Medical; Referring Provider Physician Assistant Medical; Visit Provider Physician Assistant Medical | DX: E03.9 Hypothyroidism, unspecified (principal); R97.20 Elevated prostate specific antigen [PSA]; I10 Essential (primary) hypertension; Z12.5 Encounter for screening for malignant neoplasm of prostate | CPT/HCPCS: 80053; 80061; 84403; 84443; G0103 ==